=== PATIENT | female | born 2000 | race Two or more races ===

== ENCOUNTER 2022-01-06 08:41 | Emergency (ER) | payer OTHER ==
[~2022-01-06] VITALS: Ht 152.4 cm; Wt 59.9 kg
[2022-01-06] MEDS ORDERED: ZITHROMAX500 MG PO (12:08)
== END 2022-01-06 13:14 | disposition home or self-care (01) ==
LOC: ER 08:41
DX: R42 Dizziness and giddiness (principal); Z88.8 Allergy status to other drugs, medicaments and biological substances; Z88.0 Allergy status to penicillin; Z91.013 Allergy to seafood